=== PATIENT | female | born 1995 | race American Indian/Alaskan Native ===

== ENCOUNTER 2018-04-25 17:56 | Emergency (ER) | payer OTHER ==
[2018-04-25 19:23] LABS: Color,Urine Straw (Yellow)
[2018-04-25 19:24] LABS: Bilirubin,Urine Negative (Negative); Blood,Urine Negative (Negative); Protein,Urine <15 mg/dL mg/dL (Negative); RBC,Urine < 1.0 /HPF (0.0-6.0); Urobilinogen,Urine < 2.0 mg/dL (<2.0); WBC,Urine < 1.0 /HPF (0.0-6.0)
[2018-04-25 19:25] LABS: HCG Qualitative,Urine Negative (Negative)
--- NOTE | 2018-04-25 21:21 | XRay Report ---
FINAL REPORT EXAM: XR KNEE 3V RT HISTORY: rt knee pain TECHNIQUE: Three views of the right knee PRIORS: None. FINDINGS: The bones are normally aligned and mineralized. The joint spaces are well-preserved. There is no evidence of acute fracture. The soft tissues are unremarkable. IMPRESSION: No evidence of acute fracture or subluxation. Normal right knee series.
--- NOTE | 2018-04-25 21:22 | XRay Report ---
FINAL REPORT EXAM: XR SHOULDER 2+V RT HISTORY: rt shoulder pain TECHNIQUE: 3 views of the right shoulder PRIORS: None. FINDINGS: The glenohumeral and acromioclavicular joints are normally aligned. The bones are normally mineralized. The soft tissues are unremarkable. IMPRESSION: Normal right shoulder.
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
[2018-04-26] MEDS ORDERED: FLEXERIL PO ONE (00:30)
[2018-04-26] MEDS ORDERED: NORCO 10/325 PO ONE (00:30)
[2018-04-26 00:57] VITALS: BP 122/65
== END 2018-04-26 00:57 | disposition home or self-care (01) ==
LOC: ED 17:56
DX: M25.511 Pain in right shoulder (principal); M25.561 Pain in right knee; M62.830 Muscle spasm of back; F17.200 Nicotine dependence, unspecified, uncomplicated; V89.2XXA Person injured in unspecified motor-vehicle accident, traffic, initial encounter; Y93.89 Activity, other specified; Y92.89 Other specified places as the place of occurrence of the external cause; Y99.8 Other external cause status; Z88.0 Allergy status to penicillin; Z88.8 Allergy status to other drugs, medicaments and biological substances
CPT/HCPCS: 81001; 81025; 99284

== ENCOUNTER 2018-07-16 01:53 | Emergency (ER) | payer SELFPAY ==
[2018-07-16 02:00] VITALS: BP 107/67
[2018-07-16] MEDS ORDERED: TYLENOL PO ONE (02:10)
[2018-07-16] MEDS ORDERED: TYLENOL ONE (02:10)
== END 2018-07-16 08:10 | disposition left against medical advice (07) ==
LOC: ED 01:53
DX: J00 Acute nasopharyngitis [common cold] (principal); Z53.21 Procedure and treatment not carried out due to patient leaving prior to being seen by health care provider